=== PATIENT | female | born 1995 | race American Indian/Alaskan Native ===

== ENCOUNTER 2019-03-15 06:22 | Inpatient (IN) | payer MEDICAID ==
[2019-03-15 07:20] LABS: ANION GAP 14.9; CHLORIDE,CL 99 mmol/L (101-111); SODIUM,NA 132 mmol/L (135-145)
[2019-03-15] MEDS ORDERED: Sodium Chloride 0.9% 10 ML Syringe FLUSH PRN ×2 (07:24→07:27)
[2019-03-15] MEDS ORDERED: Sodium Chloride 0.9% 1,000 ML IV ONE ×2 (07:24→07:27)
[2019-03-15] MEDS ORDERED: Ondansetron 4 MG/2 ML SDV IV ONE (07:24)
[2019-03-15] MEDS ORDERED: Acetaminophen 325 MG Tab PO ONE (07:24)
[2019-03-15] MEDS ORDERED: Ketorolac 30 MG/ML SDV IVPUSH ONE (07:24)
[2019-03-15] MEDS ORDERED: Iopamidol 612 MG/ML 75 ML Bottle IVPUSH ONE (07:26)
[2019-03-15] MEDS ORDERED: cefTRIAXone 2 GM in Sodium Chloride 0.9% 100 ML IV ONE (07:27)
--- NOTE | 2019-03-15 07:35 | EDM.PDOC ---
ED HPI GENERAL MEDICAL PROBLEM - General Chief Complaint: Abdominal Pain Stated Complaint: PAIN IN ABDOMIN Time Seen by Provider: 03/15/19 07:00 Source of Information: Reports: Patient, Old Records, Provider (Akhil CABELLO ), RN, RN Notes Reviewed, Significant Other History Limitations: Reports: No Limitations - History of Present Illness INITIAL COMMENTS - FREE TEXT/NARRATIVE: Pt presents to ER with c/o abdominal and flank pain that began yesterday. Pt reports that she had been in her usual state of good health until midday yesterday when she began to have fever and chills. Shortly after the on set of fever and chills, she reports developing B/L flank pain and nausea. This morning she reports "high fever", flank pain left > right, and upper abdominal pain, with nausea and a generalized headache. She denies neck pain or stiffness , rash, cough, vomiting, diarrhea, constipation, painful urination, or vaginal discharge. Pt admits to marijuana and methamphetamine use (both IV in snorted/ smoked). 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: Acetaminophen, NSAIDS Middle Abdominal Pain Score (Numeric/FACES): 8 - Related Data Allergies Allergy/AdvReac Type Severity Reaction Status Date / Time No Known Allergies Allergy Verified 03/15/19 06:32 Home Meds: Home Meds Acetaminophen [Tylenol] 650 mg PO Q4H PRN #40 tablet 12/12/13 [Rx] Ibuprofen 800 mg PO Q8H PRN #40 tablet 12/12/13 [Rx] Past Medical History Genitourinary History: Reports: UTI, Recurrent ROUNDSMAN History: Reports: , Spontaneous Psychiatric History: Reports: Addiction, Anxiety, Depression - Past Surgical History GI Surgical History: Reports: None Female Surgical History: Reports: None Musculoskeletal Surgical History: Reports: None Social & Family History - Family History Family Medical History: Noncontributory - Tobacco Use Smoking Status *Q: Current Every Day Smoker Years of Tobacco use: 11 Packs/Tins Daily: 0.5 Second Hand Smoke Exposure: Yes - Caffeine Use Caffeine Use: Reports: Coffee, Soda - Recreational Drug Use Recreational Drug Use: Yes Recreational Drug Type: Reports: Marijuana/Hashish, Methamphetamine Recreational Drug Use Frequency: Binges Recreational Drug Route: Reports: Inhaled, Intravenous - Sexual History Sexual History: Reports: Sexually Active - Living Situation & Occupation Living situation: Reports: with Family ED ROS GENERAL - Review of Systems Review Of Systems: ROS reveals no pertinent complaints other than HPI. ED EXAM, SEPSIS - Physical Exam Exam: See Below Exam Limited By: No Limitations General Appearance: Alert, No Apparent Distress, Thin, Other (Acutely ill appearing) Eye Exam: Bilateral Eye: EOMI, Normal Inspection (No scleral icterus), PERRL Ears: Normal External Exam, Normal Canal, Hearing Grossly Normal, Normal TMs Nose: Normal Inspection, Normal Mucosa, No Blood Throat/Mouth: Normal Lips, Normal Oropharynx, Normal Voice, No Airway Compromise , Other (Dry oral membranes) Head: Atraumatic, Normocephalic Neck: Normal Inspection, Supple, Non-Tender, Full Range of Motion, Other (No nuchal rigidity). No: Lymphadenopathy (L), Lymphadenopathy (R) Respiratory/Chest: No Respiratory Distress, Lungs Clear, Normal Breath Sounds, No Accessory Muscle Use, Chest Non-Tender. No: Crackles, Rales, Rhonchi, Wheezing, Stridor Cardiovascular: Regular Rate, Rhythm, No Edema, No JVD, No Murmur, No Rub, Tachycardia Peripheral Pulses: 3+: Radial (L), Radial (R), Dorsalis Pedis (L), Dorsalis Pedis (R) GI/Abdominal Exam: Normal Bowel Sounds, Soft, No Organomegaly, No Distention, No Abnormal Bruit, No Mass, Pelvis Stable, Tender (Tender to palpation of epigastric, periumbilical, and LUQ). No: Guarding, Rigid, Rebound (Female) Exam: Deferred Rectal (Female) Exam: Deferred Back: CVA Tenderness (L) (Left > Right), CVA Tenderness (R) Extremities: Normal Inspection, Normal Range of Motion, Non-Tender, No Pedal Edema, Normal Capillary Refill Neurological: Alert, Oriented, CN II-XII Intact, Normal Cognition, Normal Gait, No Motor/Sensory Deficits Psychiatric: Normal Affect, Normal Mood Skin: Warm, Dry, Intact, Normal Color, No Rash Course - Vital Signs Last Recorded V/S: Last Vital Signs Temp 100.7 F H 03/15/19 08:13 Pulse 106 H 03/15/19 08:13 Resp 16 03/15/19 08:13 BP 102/48 L 03/15/19 08:13 Pulse Ox 100 03/15/19 08:13 - Orders/Labs/Meds Orders: Active Orders 24 hr Category Date Time Status Peripheral IV Care [RC] . DIRECTED Care 03/15/19 07:24 Active Peripheral IV Care [RC] . DIRECTED Care 03/15/19 07:27 Active Abdomen Pelvis w Cont [CT] Stat Exams 03/15/19 07:26 Taken AMYLASE [CHEM] Stat Lab 03/15/19 06:47 Received CHLAMYDIA AND GONORRHEA BY TMA Routine Lab 03/15/19 06:50 Received CULTURE BLOOD [BC] Stat Lab 03/15/19 06:47 Results CULTURE STREP A CONFIRMATION [RM] Stat Lab 03/15/19 07:36 Results CULTURE URINE [RM] Stat Lab 03/15/19 06:31 Received LIPASE [CHEM] Stat Lab 03/15/19 06:47 Received STREP SCRN A RAPID W CULT CONF [RM] Stat Lab 03/15/19 07:36 Results Sodium Chloride 0.9% [Saline Flush] Med 03/15/19 07:24 Active 10 ml FLUSH ASDIRECTED PRN Sodium Chloride 0.9% [Saline Flush] Med 03/15/19 07:27 Active 10 ml FLUSH ASDIRECTED PRN Peripheral IV Insertion Adult [OM.PC] Stat Oth 03/15/19 07:23 Ordered Peripheral IV Insertion Adult [OM.PC] Stat Oth 03/15/19 07:27 Ordered Medication Orders Sodium Chloride (Saline Flush) 10 ml FLUSH ASDIRECTED PRN PRN Reason: Keep Vein Open Last Admin: 03/15/19 08:00 Dose: 10 ml Sodium Chloride (Saline Flush) 10 ml FLUSH ASDIRECTED PRN PRN Reason: Keep Vein Open Last Admin: 03/15/19 08:00 Dose: 10 ml Labs: Laboratory Tests 03/15/19 03/15/19 03/15/19 Range/Units 06:31 06:31 06:31 WBC (5.0-10.0) 10^3/uL RBC (4.2-5.4) 10^6/uL Hgb (12.0-16.0) g/dL Hct (37.0-47.0) % MCV (80-100) fL MCH (27.0-34.0) pg MCHC (33.0-35.0) g/dL Plt Count (150-450) 10^3/uL Neut % (Auto) (42.2-75.2) % Lymph % (Auto) (20.5-50.1) % [place] % (Auto) (2-8) % Eos % (Auto) (1.0-3.0) % Baso % (Auto) (0.0-1.0) % Add Manual Diff Neutrophils % (Manual) (42-75) % Band Neutrophils % % Lymphocytes % (Manual) (20-50) % Monocytes % (Manual) (2-8) % Hypochromasia Ovalocytes Sodium (135-145) mmol/L Potassium (3.6-5.0) mmol/L Chloride (101-111) mmol/L Carbon Dioxide (21.0-31.0) mmol/L Anion Gap BUN (7-18) mg/dL Creatinine (0.6-1.3) mg/dL Est Cr Clr Drug Dosing mL/min Estimated GFR (MDRD) BUN/Creatinine Ratio Glucose (74-105) mg/dL Lactic Acid (0.5-2.2) mmol/L Calcium (8.4-10.2) mg/dl Total Bilirubin (0.2-1.0) mg/dL AST (10-42) IU/L ALT (10-60) IU/L Alkaline Phosphatase (42-121) IU/L Total Protein (6.7-8.2) g/dl Albumin (3.2-5.5) g/dl Globulin Albumin/Globulin Ratio Urine Color Yellow (YELLOW) Urine Appearance Cloudy (CLEAR) Urine pH 5.5 (5.0-9.0) Ur Specific [place] >= 1.030 (1.005-1.030) Urine Protein 100 H (NEGATIVE) Urine Glucose (UA) Negative (NEGATIVE) Urine Ketones Negative (NEGATIVE) Urine Occult Blood Moderate H (NEGATIVE) Urine Nitrite Negative (NEGATIVE) Urine Bilirubin Negative (NEGATIVE) Urine Urobilinogen 0.2 (0.2-1.0) mg/dL Ur Leukocyte Esterase Trace H (NEGATIVE) Urine RBC 10-20 H /HPF Urine WBC >100 H (0-5/HPF) /HPF Ur Epithelial Cells Many H (NOT SEEN) /HPF Amorphous Sediment Few (NOT SEEN) /HPF Urine Bacteria Moderate H (0-FEW/HPF) /HPF Urine Mucus Rare (NOT SEEN) /LPF Urine Other See note Urine HCG, Qual Negative Urine Opiates Screen Negative (NEGATIVE) Ur Oxycodone Screen Negative (NEGATIVE) Urine Methadone Screen Negative (NEGATIVE) Ur Barbiturates Screen Negative (NEGATIVE) U Tricyclic Antidepress Negative (NEGATIVE) Ur Phencyclidine Scrn Negative (NEGATIVE) Ur Amphetamine Screen Positive H (NEGATIVE) U Methamphetamines Scrn Positive H (NEGATIVE) Urine MDMA Screen Negative (NEGATIVE) U Benzodiazepines Scrn Negative (NEGATIVE) Urine Cocaine Screen Negative (NEGATIVE) U Marijuana (THC) Screen Positive H (NEGATIVE) 03/15/19 03/15/19 03/15/19 Range/Units 06:47 06:47 06:47 WBC 27.5 H* (5.0-10.0) 10^3/uL RBC 3.99 L (4.2-5.4) 10^6/uL Hgb 7.3 L D (12.0-16.0) g/dL Hct 26.2 L (37.0-47.0) % MCV 65.7 L D (80-100) fL MCH 18.3 L (27.0-34.0) pg MCHC 27.9 L (33.0-35.0) g/dL Plt Count 205 (150-450) 10^3/uL Neut % (Auto) 90.6 H (42.2-75.2) % Lymph % (Auto) 3.0 L (20.5-50.1) % Merrick % (Auto) 6.2 (2-8) % Eos % (Auto) 0.0 L (1.0-3.0) % Baso % (Auto) 0.2 (0.0-1.0) % Add Manual Diff Yes Neutrophils % (Manual) 88 H (42-75) % Band Neutrophils % 3 % Lymphocytes % (Manual) 7 L (20-50) % Monocytes % (Manual) 2 (2-8) % Hypochromasia 1+ slight Ovalocytes 1+ slight Sodium 132 L (135-145) mmol/L Potassium 3.9 (3.6-5.0) mmol/L Chloride 99 L (101-111) mmol/L Carbon Dioxide 22.0 (21.0-31.0) mmol/L Anion Gap 14.9 BUN 10 (7-18) mg/dL Creatinine 0.7 (0.6-1.3) mg/dL Est Cr Clr Drug Dosing 99.06 mL/min Estimated GFR (MDRD) > 60 BUN/Creatinine Ratio 14.28 Glucose 112 H (74-105) mg/dL Lactic Acid 2.9 H (0.5-2.2) mmol/L Calcium 8.3 L (8.4-10.2) mg/dl Total Bilirubin 0.9 (0.2-1.0) mg/dL AST 25 (10-42) IU/L ALT 27 (10-60) IU/L Alkaline Phosphatase 68 (42-121) IU/L Total Protein 7.1 (6.7-8.2) g/dl Albumin 3.6 (3.2-5.5) g/dl Globulin 3.5 Albumin/Globulin Ratio 1.03 Urine Color (YELLOW) Urine Appearance (CLEAR) Urine pH (5.0-9.0) Ur Specific [place] (1.005-1.030) Urine Protein (NEGATIVE) Urine Glucose (UA) (NEGATIVE) Urine Ketones (NEGATIVE) Urine Occult Blood (NEGATIVE) Urine Nitrite (NEGATIVE) Urine Bilirubin (NEGATIVE) Urine Urobilinogen (0.2-1.0) mg/dL Ur Leukocyte Esterase (NEGATIVE) Urine RBC /HPF Urine WBC (0-5/HPF) /HPF Ur Epithelial Cells (NOT SEEN) /HPF Amorphous Sediment (NOT SEEN) /HPF Urine Bacteria (0-FEW/HPF) /HPF Urine Mucus (NOT SEEN) /LPF Urine Other Urine HCG, Qual Urine Opiates Screen (NEGATIVE) Ur Oxycodone Screen (NEGATIVE) Urine Methadone Screen (NEGATIVE) Ur Barbiturates Screen (NEGATIVE) U Tricyclic Antidepress (NEGATIVE) Ur Phencyclidine Scrn (NEGATIVE) Ur Amphetamine Screen (NEGATIVE) U Methamphetamines Scrn (NEGATIVE) Urine MDMA Screen (NEGATIVE) U Benzodiazepines Scrn (NEGATIVE) Urine Cocaine Screen (NEGATIVE) U Marijuana (THC) Screen (NEGATIVE) Rapid Strep: negative Influenza A/B: negative Meds: Medications Generic Name Dose Route Start Last Admin Trade Name Freq PRN Reason Stop Dose Admin Sodium Chloride 10 ml 03/15/19 07:24 03/15/19 08:00 Saline Flush FLUSH 10 ml ASDIRECTED PRN Administration Keep Vein Open Sodium Chloride 10 ml 03/15/19 07:27 03/15/19 08:00 Saline Flush FLUSH 10 ml ASDIRECTED PRN Administration Keep Vein Open Discontinued Medications Generic Name Dose Route Start Last Admin Trade Name Freq PRN Reason Stop Dose Admin Acetaminophen 650 mg 03/15/19 07:24 03/15/19 08:06 Tylenol PO 03/15/19 07:25 650 mg NOW ONE Administration Ceftriaxone Sodium Confirm 03/15/19 07:51 03/15/19 08:23 Rocephin Administered 03/15/19 07:52 Not Given Dose 2 gm .ROUTE .STK-MED ONE Sodium Chloride 1,000 mls @ 999 mls/hr 03/15/19 07:24 03/15/19 07:36 Normal Saline IV 03/15/19 08:24 999 mls/hr .BOLUS ONE Administration Ceftriaxone Sodium 2 gm/ 100 mls @ 200 mls/hr 03/15/19 07:27 03/15/19 08:01 Sodium Chloride IV 03/15/19 07:56 200 mls/hr ONETIME ONE Administration Sodium Chloride 1,000 mls @ 999 mls/hr 03/15/19 07:27 03/15/19 08:09 Normal Saline IV 03/15/19 08:27 999 mls/hr .BOLUS ONE Administration Iopamidol 75 ml 03/15/19 07:26 03/15/19 08:09 Isovue-300 (61%) IVPUSH 03/15/19 07:27 75 ml ONETIME ONE Administration Ketorolac Tromethamine 30 mg 03/15/19 07:24 03/15/19 07:39 Toradol IVPUSH 03/15/19 07:25 30 mg ONETIME ONE Administration Ondansetron HCl 4 mg 03/15/19 07:24 03/15/19 07:36 Zofran IV 03/15/19 07:25 4 mg ONETIME ONE Administration - Radiology Interpretation Free Text/Narrative:: CT Abd/Pelvis w/IV contrast: Left pyelonephritis per Rad. report. Departure - Departure Time of Disposition: 08:36 (admitted to Dr. Eaton) Disposition: Admitted As Inpatient 64 Condition: Fair, Serious Clinical Impression: Pyelonephritis Anemia Qualifiers: Anemia type: unspecified type Qualified Code(s): D64.9 - Anemia, unspecified - Discharge Information *PRESCRIPTION DRUG MONITORING PROGRAM REVIEWED*: No *COPY OF PRESCRIPTION DRUG MONITORING REPORT IN PATIENT EMILIA: No Forms: ED Department Discharge - My Orders Last 24 Hours: My Active Orders 03/15/19 06:47 AMYLASE [CHEM] Stat LIPASE [CHEM] Stat 03/15/19 06:50 CHLAMYDIA AND GONORRHEA BY TMA Routine 03/15/19 07:23 Peripheral IV Insertion Adult [OM.PC] Stat 03/15/19 07:24 Peripheral IV Care [RC] . DIRECTED Sodium Chloride 0.9% [Saline Flush] 10 ml FLUSH ASDIRECTED PRN 03/15/19 07:26 Abdomen Pelvis w Cont [CT] Stat 03/15/19 07:27 Peripheral IV Care [RC] . DIRECTED Sodium Chloride 0.9% [Saline Flush] 10 ml FLUSH ASDIRECTED PRN Peripheral IV Insertion Adult [OM.PC] Stat 03/15/19 07:36 CULTURE STREP A CONFIRMATION [RM] Stat STREP SCRN A RAPID W CULT CONF [RM] Stat - Assessment/Plan Last 24 Hours: My Active Orders 03/15/19 06:47 AMYLASE [CHEM] Stat LIPASE [CHEM] Stat 03/15/19 06:50 CHLAMYDIA AND GONORRHEA BY TMA Routine 03/15/19 07:23 Peripheral IV Insertion Adult [OM.PC] Stat 03/15/19 07:24 Peripheral IV Care [RC] . DIRECTED Sodium Chloride 0.9% [Saline Flush] 10 ml FLUSH ASDIRECTED PRN 03/15/19 07:26 Abdomen Pelvis w Cont [CT] Stat 03/15/19 07:27 Peripheral IV Care [RC] . DIRECTED Sodium Chloride 0.9% [Saline Flush] 10 ml FLUSH ASDIRECTED PRN Peripheral IV Insertion Adult [OM.PC] Stat 03/15/19 07:36 CULTURE STREP A CONFIRMATION [RM] Stat STREP SCRN A RAPID W CULT CONF [RM] Stat
[2019-03-15] MEDS ORDERED: cefTRIAXone 1 GM Vial ONE (07:51)
[2019-03-15] MEDS ORDERED: Acetaminophen 325 MG Tab PO PRN (10:52)
[2019-03-15] MEDS ORDERED: Morphine 2 MG/ML Syringe IVPUSH PRN (10:52)
[2019-03-15] MEDS ORDERED: cefTRIAXone 1 GM in Sodium Chloride 0.9% 50 ML IV SCH (11:00)
[2019-03-15] MEDS: oxyCODONE 5 MG Tab PO PRN ×3 (11:25→19:53)
[2019-03-15] MEDS: Sodium Chloride 0.9% 1,000 ML IV SCH ×2 (11:25→17:58)
--- NOTE | 2019-03-15 13:12 | HP ---
CHIEF COMPLAINT: Fever and chills and left flank pain. HISTORY OF PRESENT ILLNESS: The patient is a 23-year-old female who was admitted through the emergency room because of fever and chills and left abdominal and flank pain that started yesterday. She had a workup in the emergency room including a CAT scan of the abdomen and this showed acute left- sided pyelonephritis. WBC was also significantly elevated to 27.5 with left shift. Because of this, she was then admitted for further evaluation and management of the pyelonephritis. REVIEW OF SYSTEMS: The patient denies any chest pain, shortness of breath, orthopnea, PND, diarrhea and the rest of the review of systems is negative. PAST MEDICAL HISTORY: Unremarkable. FAMILY HISTORY: Unremarkable. SOCIAL HISTORY: The patient is smoker, half a pack per day, and also uses recreational drugs including marijuana, hashish, and methamphetamine. HOME MEDICATIONS: None. ALLERGIES: No known drug allergies. PHYSICAL EXAMINATION: General: The patient is very pleasant. She is alert and oriented, not in any acute distress. Vital Signs: Blood pressure is 102/48, pulse of 106, respirations of 16, temperature of 100.7. HEENT: Normocephalic. There are pink palpebral conjunctivae. Sclerae anicteric. No JVD. No lymphadenopathy. Heart: Regular, slightly tachycardic. No gallops. No rubs. Lungs: Equal bilaterally. No crackles. No wheezing. Abdomen: Soft. There is moderate direct tenderness on the left lumbar area and there is also CVA tenderness on percussion. Bowel sounds positive. Extremities: Negative for any significant pedal edema. No calf tenderness. LABORATORY DATA: CBC: WBC 27.5, hemoglobin is 7.3, hematocrit is 26.2, platelets are 205. Comp panel: Sodium is 132, glucose is 112, calcium is 8.3. The rest of the panel unremarkable. Lactic acid is 2.9. Amylase, lipase within normal limits. Urinalysis is remarkable for more than 100 wbc in the urine and urine tox screen is positive for amphetamine and methamphetamine and THC. ADMITTING DIAGNOSES: 1. Acute left-sided pyelonephritis. 2. Systemic inflammatory response syndrome. 3. Anemia, most likely secondary to her menstrual period. TREATMENT PLAN: The patient is going to be admitted to General Medicine floor. She will be continued on IV antibiotics, Rocephin, and she will be given pain management and Zofran for nausea. We will also start her on iron supplementation for her anemia. The rest of the management as necessary. The patient is a full code. [facility] /[id number]
[2019-03-15] MEDS: Ibuprofen 400 MG Tab PO PRN (16:38)
[2019-03-15] MEDS: Ferrous Sulfate 325 MG Tab PO SCH ×2 (16:38→18:12)
[2019-03-15] MEDS: Zolpidem 5 MG Tab PO PRN (21:22)
[2019-03-15] MEDS: Docusate Sodium 100 MG Cap PO PRN (21:22)
[2019-03-16] MEDS: oxyCODONE 5 MG Tab PO PRN ×4 (01:38→17:54)
[2019-03-16] MEDS: Ibuprofen 400 MG Tab PO PRN ×3 (01:49→16:50)
[2019-03-16] MEDS: Sodium Chloride 0.9% 1,000 ML IV SCH (01:50)
[2019-03-16 08:06] LABS: ANION GAP 10.6; CHLORIDE,CL 110 mmol/L (101-111); SODIUM,NA 137 mmol/L (135-145)
[2019-03-16] MEDS: Ferrous Sulfate 325 MG Tab PO SCH ×2 (08:55→17:56)
[2019-03-16] MEDS: Nicotine 14 MG/24 Hr Patch TRDERM SCH ×2 (08:56→14:15)
[2019-03-16] MEDS: cefTRIAXone 1 GM in Sodium Chloride 0.9% 50 ML IV SCH (08:56)
[2019-03-16] MEDS ORDERED: Sodium Chloride 0.9% 10 ML Syringe FLUSH PRN (10:11)
--- NOTE | 2019-03-16 11:05 | PN ---
DATE: 03/16/2019 SUBJECTIVE: The patient continued to slowly improve. She is still complaining of left-sided abdominal pain, but appetite is improving. Urine culture and blood cultures also are still pending. OBJECTIVE: Vital Signs: Blood pressure is 97/54, pulse of 94, respirations 16, temperature of 98.5. Heart: Regular rate and rhythm. No gallops. No rubs. Lungs: Equal bilaterally. No crackles. No wheezing. Abdomen: Soft. There is still mild-to- moderate direct tenderness on the left lumbar area and left flank area. Extremities: Negative for any significant pedal edema. No calf tenderness. MEDICATIONS: Reviewed. PLAN: We will continue with her present IV antibiotics, ceftriaxone, and I am going to discontinue the IV fluid as her appetite has been good. [facility] /[id number]
[2019-03-16] MEDS ORDERED: Iopamidol 612 MG/ML 75 ML Bottle IVPUSH ONE (18:54)
[2019-03-16 19:07] LABS: ANION GAP 13.1; CHLORIDE,CL 109 mmol/L (101-111); SODIUM,NA 140 mmol/L (135-145)
[2019-03-16] MEDS ORDERED: Furosemide 20 MG/2 ML VIAL IVPUSH ONE (19:49)
[2019-03-16] MEDS: Ondansetron 4 MG Tab.DIS PO PRN (20:44)
[2019-03-16] MEDS: Zolpidem 5 MG Tab PO PRN (21:48)
[2019-03-17] MEDS: oxyCODONE 5 MG Tab PO PRN ×3 (06:07→19:30)
[2019-03-17] MEDS: Ondansetron 4 MG Tab.DIS PO PRN ×2 (06:07→19:29)
[2019-03-17] MEDS: Ferrous Sulfate 325 MG Tab PO SCH ×2 (08:54→17:42)
[2019-03-17] MEDS: Nicotine 14 MG/24 Hr Patch TRDERM SCH (08:57)
[2019-03-17] MEDS: cefTRIAXone 1 GM in Sodium Chloride 0.9% 50 ML IV SCH (09:00)
[2019-03-17] MEDS: Sodium Chloride 0.9% 10 ML Syringe FLUSH PRN ×2 (09:02→13:09)
[2019-03-17] MEDS: Ibuprofen 400 MG Tab PO PRN ×2 (09:09→19:29)
--- NOTE | 2019-03-17 12:18 | PN ---
DATE: 03/17/2019 SUBJECTIVE: The patient yesterday had transfusion reaction on the 2nd unit of the blood that was being given, and she was complaining of severe abdominal pain, and we stopped the 2nd unit of the blood transfusion. She had a CAT scan of the abdomen and pelvis and it showed some interval development of diffuse third-spacing volume overload with periportal edema and pericholecystic fluid and moderately-sized bilateral pleural effusion. There is still persistence of the left pyelonephritis. After the 2nd unit was stopped, the patient's symptoms actually improved. We did give her 20 mg of IV Lasix, and she had good diuresis. This morning, she is feeling much better. She still has her left flank pain and left lumbar pain from her left pyelonephritis, but she denies any chest pain, shortness of breath, fever, chills, nor any other significant complaints. LABORATORY DATA: Lab workup this morning: CBC; WBC is 15.5, hemoglobin is 8.3, platelet is 164. Urine culture came back and it is E. coli susceptible to most antibiotics and another organism is Enterococcus faecalis. These are both susceptible to ciprofloxacin and nitrofurantoin. OBJECTIVE: Vital Signs: Blood pressure is 94/44, pulse of 97, respirations 16, temperature of 99.3. Heart: Regular rate and rhythm. Normal S1 and S2. No gallops. No rubs. Lungs: Equal bilaterally. No crackles. No wheezing. Abdomen: Soft. There is still some mild left lumbar tenderness on palpation. No rebound. Bowel sounds positive. Extremities: Negative for any pedal edema. No calf tenderness. PLAN: I am going to discontinue the ceftriaxone as this does not cover the Enterococcus faecalis. I am going to start her on ciprofloxacin 500 mg IV b.i.d., and we will also put her on oral Macrobid. We will continue with the rest of her management. [facility] /[id number]
[2019-03-17] MEDS: Nitrofurantoin Monohydrate/Macrocrystalline 100 MG Cap PO SCH ×2 (13:06→22:01)
[2019-03-17] MEDS: Ciprofloxacin in D5W 400 MG in Premix Bag 1 BAG IV SCH ×4 (13:07→22:01)
[2019-03-17] MEDS: Docusate Sodium 100 MG Cap PO PRN ×2 (17:42→19:29)
[2019-03-17] MEDS: Zolpidem 5 MG Tab PO PRN (23:04)
[2019-03-18] MEDS: Ferrous Sulfate 325 MG Tab PO SCH ×2 (09:36→17:01)
[2019-03-18] MEDS: Nitrofurantoin Monohydrate/Macrocrystalline 100 MG Cap PO SCH ×2 (09:36→20:33)
[2019-03-18] MEDS: Ciprofloxacin in D5W 400 MG in Premix Bag 1 BAG IV SCH ×4 (09:42→20:33)
[2019-03-18] MEDS: oxyCODONE 5 MG Tab PO PRN ×3 (09:43→20:33)
[2019-03-18] MEDS: Ibuprofen 400 MG Tab PO PRN ×3 (09:44→20:33)
[2019-03-18] MEDS: Ondansetron 4 MG Tab.DIS PO PRN (09:44)
[2019-03-18] MEDS: Nicotine 14 MG/24 Hr Patch TRDERM SCH (10:01)
--- NOTE | 2019-03-18 13:45 | PCM.PN ---
- General Info Date of Service: 03/18/19 Admission Dx/Problem (Free Text): Pt was admitted with: Fever, Chill and left flank Pain Subjective Update: Today she was seen in room, doing well and still has pain especially in AM, tolerating diey, no nausea or Vomiting, No fever or Chill Functional Status: Reports: Pain Controlled, Tolerating Diet, Ambulating, Urinating - Review of Systems General: Reports: Weakness, Appetite (acceptable). Denies: Fever, Chills HEENT: Denies: Headaches, Sinus Congestion, Sore Throat, Visual Changes Pulmonary: Denies: Shortness of Breath, Pleuritic Chest Pain, Cough, Sputum, Wheezing Cardiovascular: Denies: Chest Pain, Dyspnea on Exertion, Edema, Lightheadedness Gastrointestinal: Reports: Abdominal Pain. Denies: Diarrhea, Nausea, Vomiting Genitourinary: Reports: Flank Pain (left). Denies: Dysuria, Frequency, Burning , Urgency Musculoskeletal: Denies: Neck Pain, Shoulder Pain, Hand Pain, Foot Pain, Joint Pain Skin: Denies: Cyanosis, Jaundice, Bruising, Pruritis, Rash Neurological: Denies: Confusion, Numbness, Tingling, Tremors Psychiatric: Reports: No Symptoms - Patient Data Vitals - Most Recent: Last Vital Signs Temp 36.7 C 03/18/19 12:00 Pulse 69 03/18/19 12:00 Resp 20 03/18/19 12:00 BP 92/48 L 03/18/19 12:00 Pulse Ox 98 03/18/19 12:00 Weight - Most Recent: 52.435 kg I&O - Last 24 Hours: Intake & Output 03/17/19 03/18/19 03/18/19 22:59 06:59 14:59 Intake Total 541 Output Total 1250 Balance -709 Edgar Results Last 24 Hours: Microbiology 03/15/19 06:47 Aerobic Blood Culture - Preliminary Blood NO GROWTH AFTER 3 DAYS Anaerobic Blood Culture - Final 03/16/19 21:00 Aerobic Blood Culture - Preliminary Blood NO GROWTH AFTER 1 DAY Anaerobic Blood Culture - Final 03/17/19 18:36 Stool Occult Blood (EDGAR) - Final Stool / Feces NEGATIVE OCCULT BLOOD REFERENCE RANGE: NEGATIVE Med Orders - Current: Current Medications Discontinued Medications Acetaminophen (Tylenol) 650 mg PO NOW ONE Stop: 03/15/19 07:25 Last Admin: 03/15/19 08:06 Dose: 650 mg Acetaminophen (Tylenol) 650 mg PO Q4H PRN PRN Reason: Pain (Mild 1-3)/fever Last Admin: 03/15/19 15:29 Dose: 650 mg Ceftriaxone Sodium (Rocephin) Confirm Administered Dose 2 gm .ROUTE .STK-MED ONE Stop: 03/15/19 07:52 Last Admin: 03/15/19 08:23 Dose: Not Given Docusate Sodium (Colace) 100 mg PO BID PRN PRN Reason: Constipation Last Admin: 03/17/19 19:29 Dose: 100 mg Ferrous Sulfate (Ferrous Sulfate) 325 mg PO BIDMEALS [facility] Last Admin: 03/18/19 09:36 Dose: 325 mg Furosemide (Lasix) 20 mg IVPUSH ONETIME ONE Stop: 03/16/19 19:50 Last Admin: 03/16/19 20:32 Dose: 20 mg Sodium Chloride (Normal Saline) 1,000 mls @ 999 mls/hr IV .BOLUS ONE Stop: 03/15/19 08:24 Last Admin: 03/15/19 07:36 Dose: 999 mls/hr Ceftriaxone Sodium 2 gm/ (Sodium Chloride) 100 mls @ 200 mls/hr IV ONETIME ONE Stop: 03/15/19 07:56 Last Admin: 03/15/19 08:01 Dose: 200 mls/hr Sodium Chloride (Normal Saline) 1,000 mls @ 999 mls/hr IV .BOLUS ONE Stop: 03/15/19 08:27 Last Admin: 03/15/19 08:09 Dose: 999 mls/hr Sodium Chloride (Normal Saline) 1,000 mls @ 125 mls/hr IV ASDIRECTED [facility] Last Infusion: 03/16/19 08:00 Dose: 75 mls/hr Ceftriaxone Sodium 1 gm/ (Sodium Chloride) 50 mls @ 50 mls/hr IV Q24H [facility] Last Admin: 03/15/19 11:06 Dose: Not Given Ceftriaxone Sodium 1 gm/ (Sodium Chloride) 50 mls @ 50 mls/hr IV Q24H [facility] Last Admin: 03/17/19 09:00 Dose: 50 mls/hr Ciprofloxacin/Dextrose 400 mg/ (Premix) 200 mls @ 200 mls/hr IV Q12HR [facility] Last Admin: 03/18/19 09:42 Dose: 200 mls/hr Ibuprofen (Motrin) 400 mg PO TID PRN PRN Reason: Pain (mild 1-3, use 2nd)/Fever Last Admin: 03/18/19 09:44 Dose: 400 mg Iopamidol (Isovue-300 (61%)) 75 ml IVPUSH ONETIME ONE Stop: 03/15/19 07:27 Last Admin: 03/15/19 08:09 Dose: 75 ml Iopamidol (Isovue-300 (61%)) 75 ml IVPUSH ONETIME ONE Stop: 03/16/19 18:55 Last Admin: 03/16/19 19:02 Dose: 75 ml Ketorolac Tromethamine (Toradol) 30 mg IVPUSH ONETIME ONE Stop: 03/15/19 07:25 Last Admin: 03/15/19 07:39 Dose: 30 mg Miscellaneous Information (Check Patch) 1 ea TRDERM BEDTIME [facility] Last Admin: 03/17/19 21:20 Dose: Not Given Morphine Sulfate (Morphine) 2 mg IVPUSH Q2H PRN PRN Reason: Pain (severe 7-10) Last Admin: 03/16/19 20:46 Dose: 2 mg Nicotine (Habitrol) 14 mg TRDERM DAILY [facility] Last Admin: 03/18/19 10:01 Dose: 14 mg Nitrofurantoin Macrocrystals (Macrobid) 100 mg PO BID [facility] Last Admin: 03/18/19 09:36 Dose: 100 mg Ondansetron HCl (Zofran) 4 mg IV ONETIME ONE Stop: 03/15/19 07:25 Last Admin: 03/15/19 07:36 Dose: 4 mg Ondansetron HCl (Zofran Odt) 4 mg PO Q4H PRN PRN Reason: nausea, able to take PO Last Admin: 03/18/19 09:44 Dose: 4 mg Oxycodone HCl (Oxycodone) 5 mg PO Q4H PRN PRN Reason: Pain (moderate 4-6) Last Admin: 03/18/19 09:43 Dose: 5 mg Sodium Chloride (Saline Flush) 10 ml FLUSH ASDIRECTED PRN PRN Reason: Keep Vein Open Last Admin: 03/15/19 08:00 Dose: 10 ml Sodium Chloride (Saline Flush) 10 ml FLUSH ASDIRECTED PRN PRN Reason: Keep Vein Open Last Admin: 03/15/19 08:00 Dose: 10 ml Sodium Chloride (Saline Flush) 10 ml FLUSH ASDIRECTED PRN PRN Reason: Keep Vein Open Last Admin: 03/17/19 13:09 Dose: 10 ml Sodium Chloride (Saline Flush) 10 ml FLUSH ASDIRECTED PRN PRN Reason: Keep Vein Open Zolpidem Tartrate (Ambien) 5 mg PO BEDTIME PRN PRN Reason: Other Last Admin: 03/17/19 23:04 Dose: 5 mg - Exam Quality Assessment: DVT Prophylaxis. No: Supplemental Oxygen, Central Line/PICC , Urine Catheter General: Alert, Oriented, Cooperative, No Acute Distress HEENT: Pupils Equal, Pupils Reactive, EOMI, Mucous Membr. Moist/[place] Neck: Supple, No JVD, No Thyromegaly Lungs: Clear to Auscultation, Normal Respiratory Effort Cardiovascular: Regular Rate, Regular Rhythm, No Murmurs GI/Abdominal Exam: Normal Bowel Sounds, Soft, Non-Tender, No Distention. No: Rebound (Female) Exam: Deferred Back Exam: Normal Inspection, Full Range of Motion Extremities: Normal Inspection, No Pedal Edema Skin: Dry, Intact Neurological: No New Focal Deficit Psy/Mental Status: Alert, Normal Affect, Normal Mood - Problem List & Annotations (1) Pyelonephritis SNOMED Code(s): 56487534 Code(s): N12 - TUBULO-INTERSTITIAL NEPHRITIS, NOT SPCF ACUTE OR CHRONIC Status: Acute - Problem List Review Problem List Initiated/Reviewed/Updated: Yes - My Orders Last 24 Hours: My Active Orders 03/18/19 10:30 CHLAMYDIA AND GONORRHEA BY [facility] Urgent - Plan Plan:: This is a 23 y/o F with no significant past medical history presented to ER with Fever, Chill and left flank pain. She had CT of the abd/Pelvis and showed Left sided pyelonephritis, her WBC was also elevated on admission it was 27.5 ith left shift Impression and plan: 1. Acute Left sided Pyelonephritis: - Pt had urine culture : and showed E, Coli and Enterococcus Faecalis -Will continue Ciprofloxacin and Nitrofurantoin -Will continue oral pain medication -Will stop IV fluids -Encourage oral intake -Continue Zofran for nausea 2. DVT prophylaxis: Continue Collin hose and she is ambulating Code status: Full Code
[2019-03-18] MEDS: Docusate Sodium 100 MG Cap PO PRN ×2 (15:58→20:33)
[2019-03-18] MEDS: Zolpidem 5 MG Tab PO PRN (22:41)
[2019-03-19 06:46] LABS: CHLORIDE,CL 108 mmol/L (101-111); SODIUM,NA 140 mmol/L (135-145)
[2019-03-19] MEDS: Docusate Sodium 100 MG Cap PO PRN (09:12)
[2019-03-19] MEDS: Ibuprofen 400 MG Tab PO PRN (09:12)
[2019-03-19] MEDS: Ferrous Sulfate 325 MG Tab PO SCH (09:12)
[2019-03-19] MEDS: Nitrofurantoin Monohydrate/Macrocrystalline 100 MG Cap PO SCH (09:14)
[2019-03-19] MEDS: oxyCODONE 5 MG Tab PO PRN (09:14)
[2019-03-19] MEDS: Nicotine 14 MG/24 Hr Patch TRDERM SCH (09:15)
[2019-03-19] MEDS: Ciprofloxacin in D5W 400 MG in Premix Bag 1 BAG IV SCH ×2 (09:16)
--- NOTE | 2019-03-19 10:17 | PCM.DCSUM1 ---
Discharge Summary - Hospital Course Free Text/Narrative:: This is a 23 y/o F with no significant past medical history presented to ER with Fever, Chill and left flank pain. She had CT of the abd/Pelvis and showed Left sided pyelonephritis, her WBC was also elevated on admission it was 27.5 ith left shift The pt was admitted and started on IV Ciprofloxacin and Nitrofurantoin and also on zofran for nausea. she was given Tylenol and Ibuprofen intermittently and also IV Morphine. She is doing well, tolerating diet and ambulating. her pain is better and she will be going home on oral Ciprofloxacin 500 mg PO BID X 7 days course. She is also advise to Follow with PMD in this week ( week of ). - Discharge Data Discharge Date: 03/19/19 Discharge Disposition: Home, Self-Care 01 Condition: Good - Referral to Home Health Primary Care Physician: PCP None - Discharge Diagnosis/Problem(s) (1) Pyelonephritis SNOMED Code(s): 68638284 ICD Code: N12 - TUBULO-INTERSTITIAL NEPHRITIS, NOT SPCF ACUTE OR CHRONIC Status: Acute Current Visit: No - Patient Instructions Diet: Regular Diet as Tolerated Activity: As Tolerated Driving: May Drive Today Showering/Bathing: May Shower Notify Provider of: Fever, Increased Pain, Nausea and/or Vomiting Other/Special Instructions: This is a 23 y/o F with no significant past medical history presented to ER with Fever, Chill and left flank pain. She had CT of the abd/Pelvis and showed Left sided pyelonephritis, her WBC was also elevated on admission it was 27.5 ith left shift. The pt was admitted and started on IV Ciprofloxacin and Nitrofurantoin and also on zofran for nausea. she was given Tylenol and Ibuprofen intermittently and also IV Morphine. She is doing well, tolerating diet and ambulating. her pain is better and she will be going home on oral Ciprofloxacin 500 mg PO BID X 7 days course. She is also advise to Follow with PMD in this week ( week of 03/20/19) - Discharge Plan *PRESCRIPTION DRUG MONITORING PROGRAM REVIEWED*: No *COPY OF PRESCRIPTION DRUG MONITORING REPORT IN PATIENT EMILIA: No Prescriptions/Med Rec: Ciprofloxacin [Cipro XR] 500 mg PO BID #14 tab.er Ferrous Sulfate 325 mg PO DAILY #30 tablet Home Medications: Home Meds Ciprofloxacin [Cipro XR] 500 mg PO BID #14 tab.er 03/19/19 [Rx] Ferrous Sulfate 325 mg PO DAILY #30 tablet 03/19/19 [Rx] Oxygen Therapy Mode: Room Air Patient Handouts: Pyelonephritis, Adult, [id number], Iron tablets, capsules, extended-release tablets, Ciprofloxacin tablets Forms: ED Department Discharge - Discharge Summary/Plan Comment DC Time >30 min.: Yes Discharge Summary/Plan Comment: This is a 23 y/o F with no significant past medical history presented to ER with Fever, Chill and left flank pain. She had CT of the abd/Pelvis and showed Left sided pyelonephritis, her WBC was also elevated on admission it was 27.5 ith left shift Impression and plan: 1. Acute Left sided Pyelonephritis: - Pt had urine culture : It showed E, Coli and Enterococcus Faecalis -Will continue Ciprofloxacin 500 mg PO BID x 7 days -Will continue oral pain medication, Tylenol and Ibuprofen as needed --Encourage oral intake -Continue Zofran for nausea as needed 2. Disposition: Will be Dischrge home today and will follow with PMD in this Week ( week of 03/20/19) - General Info Date of Service: 03/19/19 Admission Dx/Problem (Free Text: Pt was admitted with: Fever, Chill and left flank Pain Subjective Update: Today she was seen in room, doing well and still has pain especially in AM, tolerating diet, no nausea or Vomiting, No fever or Chill and will be able to go home Functional Status: Reports: Pain Controlled, Tolerating Diet, Ambulating, Urinating - Review of Systems General: Reports: Appetite (acceptable). Denies: Fever, Malaise, Chills HEENT: Denies: Headaches, Sinus Congestion, Sore Throat, Visual Changes Pulmonary: Denies: Shortness of Breath, Cough, Sputum, Wheezing Cardiovascular: Denies: Chest Pain, Dyspnea on Exertion, Lightheadedness Gastrointestinal: Reports: Abdominal Pain (very mild). Denies: Diarrhea, Nausea , Vomiting Genitourinary: Denies: Dysuria, Burning, Pain, Flank Pain Musculoskeletal: Denies: Neck Pain, Shoulder Pain, Hand Pain, Back Pain Skin: Denies: Cyanosis, Jaundice, Bruising, Pruritis, Rash Neurological: Denies: Confusion, Numbness, Tingling, Tremors Psychiatric: Reports: No Symptoms - Patient Data Vitals - Most Recent: Last Vital Signs Temp 36.4 C 03/19/19 08:00 Pulse 74 03/19/19 08:00 Resp 20 03/19/19 08:00 BP 109/58 L 03/19/19 08:00 Pulse Ox 100 03/19/19 08:00 Weight - Most Recent: 52.435 kg I&O - Last 24 hours: Intake & Output 03/18/19 03/19/19 03/19/19 22:59 06:59 14:59 Intake Total 500 Balance 500 Lab Results - Last 24 hrs: Laboratory Results - last 24 hr 03/19/19 03/19/19 Range/Units 05:50 05:50 WBC 4.8 L (5.0-10.0) 10^3/uL RBC 4.24 (4.2-5.4) 10^6/uL Hgb 8.6 L (12.0-16.0) g/dL Hct 28.7 L (37.0-47.0) % MCV 67.7 L (80-100) fL MCH 20.3 L (27.0-34.0) pg MCHC 30.0 L (33.0-35.0) g/dL Plt Count 246 D (150-450) 10^3/uL Sodium 140 (135-145) mmol/L Potassium 4.0 (3.6-5.0) mmol/L Chloride 108 (101-111) mmol/L Carbon Dioxide 22.0 (21.0-31.0) mmol/L Anion Gap 14.0 BUN 10 (7-18) mg/dL Creatinine 0.6 (0.6-1.3) mg/dL Est Cr Clr Drug Dosing 118.65 mL/min Estimated GFR (MDRD) > 60 Glucose 90 (74-105) mg/dL Calcium 8.0 L (8.4-10.2) mg/dl ARSLAN Results - Last 24 hrs: Microbiology 03/15/19 06:47 Aerobic Blood Culture - Preliminary Blood NO GROWTH AFTER 4 DAYS Anaerobic Blood Culture - Final 03/16/19 21:00 Aerobic Blood Culture - Preliminary Blood NO GROWTH AFTER 2 DAYS Anaerobic Blood Culture - Final Med Orders - Current: Current Medications Acetaminophen (Tylenol) 650 mg PO Q4H PRN PRN Reason: Pain (Mild 1-3)/fever Last Admin: 03/15/19 15:29 Dose: 650 mg Docusate Sodium (Colace) 100 mg PO BID PRN PRN Reason: Constipation Last Admin: 03/19/19 09:12 Dose: 100 mg Ferrous Sulfate (Ferrous Sulfate) 325 mg PO BIDMEALS [facility] Last Admin: 03/19/19 09:12 Dose: 325 mg Ciprofloxacin/Dextrose 400 mg/ (Premix) 200 mls @ 200 mls/hr IV Q12HR [facility] Last Admin: 03/19/19 09:16 Dose: 200 mls/hr Ibuprofen (Motrin) 400 mg PO TID PRN PRN Reason: Pain (mild 1-3, use 2nd)/Fever Last Admin: 03/19/19 09:12 Dose: 400 mg Miscellaneous Information (Check Patch) 1 ea TRDERM BEDTIME [facility] Last Admin: 03/18/19 20:32 Dose: Not Given Morphine Sulfate (Morphine) 2 mg IVPUSH Q2H PRN PRN Reason: Pain (severe 7-10) Last Admin: 03/16/19 20:46 Dose: 2 mg Nicotine (Habitrol) 14 mg TRDERM DAILY [facility] Last Admin: 03/19/19 09:15 Dose: 14 mg Nitrofurantoin Macrocrystals (Macrobid) 100 mg PO BID [facility] Last Admin: 03/19/19 09:14 Dose: 100 mg Ondansetron HCl (Zofran Odt) 4 mg PO Q4H PRN PRN Reason: nausea, able to take PO Last Admin: 03/18/19 09:44 Dose: 4 mg Oxycodone HCl (Oxycodone) 5 mg PO Q4H PRN PRN Reason: Pain (moderate 4-6) Last Admin: 03/19/19 09:14 Dose: 5 mg Sodium Chloride (Saline Flush) 10 ml FLUSH ASDIRECTED PRN PRN Reason: Keep Vein Open Last Admin: 03/18/19 20:34 Dose: 10 ml Zolpidem Tartrate (Ambien) 5 mg PO BEDTIME PRN PRN Reason: Other Last Admin: 03/18/19 22:41 Dose: 5 mg Discontinued Medications Acetaminophen (Tylenol) 650 mg PO NOW ONE Stop: 03/15/19 07:25 Last Admin: 03/15/19 08:06 Dose: 650 mg Ceftriaxone Sodium (Rocephin) Confirm Administered Dose 2 gm .ROUTE .STK-MED ONE Stop: 03/15/19 07:52 Last Admin: 03/15/19 08:23 Dose: Not Given Furosemide (Lasix) 20 mg IVPUSH ONETIME ONE Stop: 03/16/19 19:50 Last Admin: 03/16/19 20:32 Dose: 20 mg Sodium Chloride (Normal Saline) 1,000 mls @ 999 mls/hr IV .BOLUS ONE Stop: 03/15/19 08:24 Last Admin: 03/15/19 07:36 Dose: 999 mls/hr Ceftriaxone Sodium 2 gm/ (Sodium Chloride) 100 mls @ 200 mls/hr IV ONETIME ONE Stop: 03/15/19 07:56 Last Admin: 03/15/19 08:01 Dose: 200 mls/hr Sodium Chloride (Normal Saline) 1,000 mls @ 999 mls/hr IV .BOLUS ONE Stop: 03/15/19 08:27 Last Admin: 03/15/19 08:09 Dose: 999 mls/hr Sodium Chloride (Normal Saline) 1,000 mls @ 125 mls/hr IV ASDIRECTED [facility] Last Infusion: 03/16/19 08:00 Dose: 75 mls/hr Ceftriaxone Sodium 1 gm/ (Sodium Chloride) 50 mls @ 50 mls/hr IV Q24H [facility] Last Admin: 03/15/19 11:06 Dose: Not Given Ceftriaxone Sodium 1 gm/ (Sodium Chloride) 50 mls @ 50 mls/hr IV Q24H [facility] Last Admin: 03/17/19 09:00 Dose: 50 mls/hr Iopamidol (Isovue-300 (61%)) 75 ml IVPUSH ONETIME ONE Stop: 03/15/19 07:27 Last Admin: 03/15/19 08:09 Dose: 75 ml Iopamidol (Isovue-300 (61%)) 75 ml IVPUSH ONETIME ONE Stop: 03/16/19 18:55 Last Admin: 03/16/19 19:02 Dose: 75 ml Ketorolac Tromethamine (Toradol) 30 mg IVPUSH ONETIME ONE Stop: 03/15/19 07:25 Last Admin: 03/15/19 07:39 Dose: 30 mg Ondansetron HCl (Zofran) 4 mg IV ONETIME ONE Stop: 03/15/19 07:25 Last Admin: 03/15/19 07:36 Dose: 4 mg Sodium Chloride (Saline Flush) 10 ml FLUSH ASDIRECTED PRN PRN Reason: Keep Vein Open Last Admin: 03/15/19 08:00 Dose: 10 ml Sodium Chloride (Saline Flush) 10 ml FLUSH ASDIRECTED PRN PRN Reason: Keep Vein Open Last Admin: 03/15/19 08:00 Dose: 10 ml Sodium Chloride (Saline Flush) 10 ml FLUSH ASDIRECTED PRN PRN Reason: Keep Vein Open Last Admin: 03/17/19 13:09 Dose: 10 ml - Exam Quality Assessment: Reports: DVT Prophylaxis. Denies: Supplemental Oxygen, Central Line/PICC, Urine Catheter General: Reports: Alert, Oriented, Cooperative, No Acute Distress HEENT: Reports: Pupils Equal, Pupils Reactive, EOMI, Mucous Membr. Moist/[place] Neck: Reports: Supple, No JVD, No Thyromegaly Lungs: Reports: Clear to Auscultation, Normal Respiratory Effort Cardiovascular: Reports: Regular Rate, Regular Rhythm, No Murmurs GI/Abdominal Exam: Normal Bowel Sounds, Soft, Non-Tender, No Distention (Female) Exam: Deferred Rectal (Female) Exam: Deferred Back Exam: Reports: Normal Inspection, Full Range of Motion Extremities: Normal Inspection, No Pedal Edema Skin: Reports: Warm, Intact Neurological: Reports: No New Focal Deficit Psy/Mental Status: Reports: Alert, Normal Affect, Normal Mood
[2019-03-19] MEDS ORDERED: Ciprofloxacin 500 MG Tab PO ONE (11:22)
[2019-03-19] MEDS ORDERED: Ciprofloxacin 500 MG Tab ONE (11:26)
== END 2019-03-19 11:30 | disposition home or self-care (01) | DRG 690 ==
LOC: DL.ED 06:22 → DL.MS 08:36 → DL.ED 08:53 → UNDOADMIN 09:30 → DL.MS 09:30 → UNDODISIN 03-18 12:10
PROVIDERS: ADMIT Internal Medicine; ATTEND Internal Medicine
PROC: 30233N1 Transfusion of Nonautologous Red Blood Cells into Peripheral Vein, Percutaneous Approach (ICD-10-PCS; principal; 2019-03-16)
DX: N10 Acute pyelonephritis (principal); R65.10 Systemic inflammatory response syndrome (SIRS) of non-infectious origin without acute organ dysfunction; J90 Pleural effusion, not elsewhere classified; B96.20 Unspecified Escherichia coli [E. coli] as the cause of diseases classified elsewhere; B95.2 Enterococcus as the cause of diseases classified elsewhere; F17.210 Nicotine dependence, cigarettes, uncomplicated; D64.9 Anemia, unspecified; F41.9 Anxiety disorder, unspecified; F32.9 Major depressive disorder, single episode, unspecified
CPT/HCPCS: 36415; 36430; 74177; 80048; 80053; 80305-QW; 81001; 81025; 82150; 82272; 82607; 82728; 82746; 83540; 83550; 83605; 83690; 85025; 85027; 86850; 86900; 86901; 86920; 86922; 87040; 87081; 87086; 87088; 87186; 87430; 87491; 87591; 87804; 96365; 96375; 99284; 99285-25; A9270-GY; J0696; J0744; J1885; J1940; J2270; J2405; J7030; J7050; P9016; Q9967